=== PATIENT | female | born 1945 | race Caucasian/White ===

== ENCOUNTER 2020-01-23 08:28 | Outpatient (CLI) | payer MEDICARE, SELFPAY ==
--- NOTE | 2020-01-23 08:55 | CT_ITS ---
WS: [id number] CT NECK WITH CONTRAST HISTORY: SWELLING/MASS IN NECK TECHNIQUE: Contiguous 5 mm axial images are performed through the neck with intravenous contrast. Sag ittal and coronal reformats are also submitted. All CT scans at [facility] use at least o ne of these dose optimization techniques: automated exposure control; mA and/or kV adjustment per pat ient size (includes targeted exams where dose is matched to clinical indication); or iterative recons truction. CONTRAST: CONTRAST: Omnipaque 300; 95 mL IV. DLP: 2590.43 mGycm COMPARISON: None available. Nasopharynx, oropharynx, hypopharynx and larynx are unremarkable. No soft tissue masses or abnormal e nhancement. Torus tubarius and fossa of Rosenmuller and parapharyngeal fat are normal. No significant lymphadenopathy is identified. Subcentimeter thyroid nodule on the LEFT measures 5 mm. The submandibular gland and parotid glands ar e normal. No masses or enlargement. Mild degenerative changes throughout the cervical spine and upper thoracic spine. Visualized portions of the skull base demonstrate no abnormalities. Orbits and globes are within norm al limits. No soft tissue masses. Visualized paranasal sinuses and mastoid air cells are normal. Lung apices are clear. CT/CT neck w con* [id number] IMPRESSION: No neck mass or adenopathy.
[2020-01-23 09:24] LABS: Blood Urea Nitrogen 10 mg/dL (8-23)
[2020-01-23] MEDS: iohexol 300 mg/mL 100 mL Btl IV (09:32)
== END 2020-01-23 08:29 | disposition home or self-care (01) ==
LOC: RADWPI 08:32
PROVIDERS: Radiology Diagnostic Radiology; Family Provider Physician Assistant; PCP Physician Assistant; Visit Provider Specialist
DX: R22.1 Localized swelling, mass and lump, neck (principal)
CPT/HCPCS: 70491; 82565; 84520; Q9967

== ENCOUNTER 2020-02-24 11:03 | Outpatient (CLI) | payer MEDICARE, SELFPAY ==
--- NOTE | 2020-02-24 11:13 | XR_ITS ---
WS: [id number] DEXA (DUAL ENERGY X-RAY ABSORPTIOMETRY) Bone mineral density was performed using a [employer] machine. HISTORY: POSTMENOPAUSAL COMPARISON: 06/07/2013 Lumbar spine BMD (L1-L4): 1.212 g/cm2 T score: 0.3 Z score: 1.7 Total hip BMD: Left: 1.010 g/cm2. T score: 0.0 Z score: 1.4 Right: 1.031 g/cm2. T score: 0.2 Z score: 1.5 10 year probability of a major osteoporotic fracture is 8%. Compared to the prior study from 06/07/2013. Lumbar spine bone mineral density has decreased by 3.0%. Bilateral hips bone mineral density has decreased by 10.8%. XR/XR DEXA axial skeleton* [id number] IMPRESSION: NORMAL BONE MINERAL DENSITY based upon the WHO classification for females. 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
== END 2020-02-24 11:04 | disposition home or self-care (01) ==
LOC: RADWPI 11:05
PROVIDERS: Family Provider Physician Assistant; PCP Physician Assistant; Visit Provider Physician Assistant
DX: Z78.0 Asymptomatic menopausal state (principal)
CPT/HCPCS: 77080

== ENCOUNTER 2020-06-07 13:09 | Outpatient (CLI) | payer MEDICARE, SELFPAY ==
--- NOTE | 2020-06-07 13:26 | MM_ITS ---
WS: [id number] BILATERAL DIGITAL SCREENING MAMMOGRAM WITH CAD CLINICAL INFORMATION: SCREENING HISTORY: Screening mammogram. No current complaints. COMPARISON: April 22, 2019. TECHNIQUE: Bilateral CC and MLO views. FINDINGS: Fatty-replaced breasts bilaterally. No suspicious focal mass, asymmetry, calcifications, or net software architect ural distortion. No evidence of malignancy. Lucent centered calcification left breast. Stable intrama mmary lymph nodes. MM/[place] [id number] IMPRESSION: BI-RADS: 2-Benign FOLLOW UP: 1 Year Follow-up Recommend return to annual screening mammography.
== END 2020-06-07 13:10 | disposition home or self-care (01) ==
LOC: RADSHAW 13:14
PROVIDERS: PCP Physician Assistant; Visit Provider Physician Assistant
DX: Z12.31 Encounter for screening mammogram for malignant neoplasm of breast (principal)
CPT/HCPCS: 77067

== ENCOUNTER 2021-08-06 10:19 | Outpatient (CLI) | payer MEDICARE, SELFPAY ==
--- NOTE | 2021-08-06 10:39 | MM_ITS ---
WS: [id number] SCREENING DIGITAL MAMMOGRAM WITH CAD HISTORY: SCREENING COMPARISON: 06/07/2020, 04/22/2019 and 04/13/2018 Bilateral CC and MLO views submitted. Computer aided detection analyzed. Breast composition: There are scattered areas of fibroglandular density. Normal appearance of each br east. Benign calcifications. There is a palpable marker placed over the upper inner quadrant of the R IGHT breast. No underlying abnormality. MM/[place] [id number] IMPRESSION: BI-RADS: 0-Incomplete: Need additional imaging evaluation FOLLOW UP: Need Additional Imaging RIGHT breast: Spot compression views (CC and MLO). True ML. Ultrasound to follo w if abnormality persists. Patient describes a palpable abnormality for which d iagnostic imaging should be performed.
== END 2021-08-06 10:20 | disposition home or self-care (01) ==
LOC: RADSHAW 10:24
PROVIDERS: PCP Physician Assistant; Visit Provider Physician Assistant
DX: Z12.31 Encounter for screening mammogram for malignant neoplasm of breast (principal)
CPT/HCPCS: 77067

== ENCOUNTER 2021-08-27 10:10 | Outpatient (CLI) | payer MEDICARE, SELFPAY ==
--- NOTE | 2021-08-27 10:15 | US_ITS ---
WS: [id number] ADDITIONAL VIEWS RIGHT BREAST RIGHT breast ultrasound, limited HISTORY: Patient describes a palpable area upper inner RIGHT breast. COMPARISON: 08/06/2021, 06/07/2020 Compression views right CC and MLO projection. True ML also submitted. Mammographically no abnormalit y is noted in the region of the triangular marker in the upper inner quadrant of the RIGHT breast. No soft tissue thickening or mass. RIGHT breast ultrasound, limited. Ultrasound is directed to 1:00 in the location of the palpable abno rmality. There is no soft tissue mass identified. No shadowing or skin thickening. US/US breast RT limited* [id number] IMPRESSION: BI-RADS: 1-Negative FOLLOW-UP: 1 Year Follow-up No imaging abnormality associated with the palpable area in the RIGHT breast.
== END 2021-08-27 10:11 | disposition home or self-care (01) ==
LOC: RADSHAW 10:13
PROVIDERS: PCP Physician Assistant; Visit Provider Physician Assistant
DX: R92.8 Other abnormal and inconclusive findings on diagnostic imaging of breast (principal)
CPT/HCPCS: 76642; 77065

== ENCOUNTER 2022-03-21 14:01 | Outpatient (CLI) | payer MEDICARE, SELFPAY ==
--- NOTE | 2022-03-21 14:11 | XR_ITS ---
WS: [id number] DEXA (DUAL ENERGY X-RAY ABSORPTIOMETRY) Bone mineral density was performed using a [employer] machine. HISTORY: POST MENOPAUSAL COMPARISON: 02/06/2020 Lumbar spine BMD (L1-L4): 1.148 g/cm2 T score: -0.3 Z score: 1.2 Total hip BMD: Left: 0.962 g/cm2. T score: -0.4 Z score: 1.1 Right: 0.975 g/cm2. T score: -0.3 Z score: 1.2 10 year probability of a major osteoporotic fracture is 9.2%. Compared to the prior study from 02/24/2020. Lumbar spine bone mineral density has decreased by 5.3%. Bilateral hips bone mineral density has decreased by 5.2%. XR/XR DEXA axial skeleton* [id number] IMPRESSION: NORMAL BONE MINERAL DENSITY based upon the WHO classification for females. Sign ificant decrease in bone mineral density within the lumbar spine and hips since the prior study.
== END 2022-03-21 14:02 | disposition home or self-care (01) ==
PROVIDERS: PCP Physician Assistant; Visit Provider Physician Assistant
DX: Z78.0 Asymptomatic menopausal state (principal)
CPT/HCPCS: 77080

== ENCOUNTER 2022-09-04 09:22 | Outpatient (CLI) | payer MEDICARE, SELFPAY ==
--- NOTE | 2022-09-04 09:36 | MM_ITS ---
WS: [id number] BILATERAL SCREENING DIGITAL TOMOSYNTHESIS MAMMOGRAM WITH CAD HISTORY: SCREENING COMPARISON: 08/06/2021, 06/07/2020 Bilateral CC and MLO views with tomosynthesis and synthetic mammography submitted. Computer aided det ection analyzed. Breast composition: There are scattered areas of fibroglandular density. No suspicious masses, microc alcifications or architectural distortion. Benign calcifications in each breast. Breast arterial calc ifications. MM/[place] [id number] IMPRESSION: BI-RADS: 2-Benign FOLLOW UP: 1 Year Follow-up
== END 2022-09-04 09:23 | disposition home or self-care (01) ==
PROVIDERS: PCP Physician Assistant; Visit Provider Physician Assistant
DX: Z12.31 Encounter for screening mammogram for malignant neoplasm of breast (principal)
CPT/HCPCS: 77063; 77067

== ENCOUNTER → 2023-08-12 13:37 | Outpatient (BNVA) | payer MEDICARE, SELFPAY | PROVIDERS: PCP Physician Assistant; Visit Provider Specialist | DX: M19.041 Primary osteoarthritis, right hand; M19.042 Primary osteoarthritis, left hand | CPT/HCPCS: 73130; 99204 ==

== ENCOUNTER 2023-08-21 06:00 | Outpatient (RCR) | payer MEDICARE, SELFPAY | END 2023-08-26 23:59 | disposition home or self-care (01) | LOC: SOT 06:00 | PROVIDERS: PCP Physician Assistant; Visit Provider Specialist | DX: M19.042 Primary osteoarthritis, left hand (principal); M19.041 Primary osteoarthritis, right hand | CPT/HCPCS: 97110; 97166 ==

== ENCOUNTER 2023-08-27 06:00 | Outpatient (RCR) | payer MEDICARE, SELFPAY | END 2023-09-24 23:59 | disposition home or self-care (01) | LOC: SOT 06:00 | PROVIDERS: PCP Physician Assistant; Visit Provider Specialist | DX: M19.042 Primary osteoarthritis, left hand (principal); M19.041 Primary osteoarthritis, right hand | CPT/HCPCS: 97022; 97110; 97140 ==

== ENCOUNTER 2023-09-07 13:49 | Outpatient (CLI) | payer MEDICARE, SELFPAY ==
--- NOTE | 2023-09-07 15:27 | MM_ITS ---
WS: [id number] BILATERAL 3D TOMOSYNTHESIS DIGITAL SCREENING MAMMOGRAPHY WITH CAD CLINICAL INFORMATION: SCREENING HISTORY: Screening mammogram. No current complaints. COMPARISON: 2022 TECHNIQUE: Bilateral CC and MLO views. FINDINGS: Scattered fibroglandular densities bilaterally. No suspicious focal mass, asymmetry, calcifications, or architectural distortion. No evidence of malignancy. Vascular calcification. A few incidental punc kelly and lucent centered calcifications. IMPRESSION: MM/[place] [id number] BI-RADS: 2-Benign FOLLOW UP: 1 Year Follow-up Recommend return to annual screening mammography.
== END 2023-09-07 13:50 | disposition home or self-care (01) ==
LOC: RAD 13:50
PROVIDERS: PCP Physician Assistant; Visit Provider Physician Assistant
DX: Z12.31 Encounter for screening mammogram for malignant neoplasm of breast (principal); R92.323 Mammographic fibroglandular density, bilateral breasts; R92.1 Mammographic calcification found on diagnostic imaging of breast
CPT/HCPCS: 77063; 77067

== ENCOUNTER 2023-09-25 06:00 | Outpatient (RCR) | payer MEDICARE, SELFPAY | END 2023-10-25 23:59 | disposition home or self-care (01) | LOC: SOT 06:00 | PROVIDERS: PCP Physician Assistant; Visit Provider Specialist | DX: M19.042 Primary osteoarthritis, left hand (principal); M19.041 Primary osteoarthritis, right hand | CPT/HCPCS: 97022; 97110 ==

== ENCOUNTER 2024-08-19 08:43 | Emergency (ER) | payer MEDICARE, SELFPAY ==
[2024-08-19 08:58] VITALS: BP 109/80; PULSE 80; RESP 17; TEMP 36.5; O2SAT 97; BMI 28.7
--- NOTE | 2024-08-19 09:20 | ED_ITS ---
HPI - Nausea/Vomiting/Diarrhea 2 General: Chief complaint: Nausea/Vomiting/Diarrhea Stated complaint: stomach pain Time Seen by Provider: 08/19/24 08:44 History of Present Illness: 78-year-old female presents to the [facility] ency room with complaints of abdominal pain she localizes generally to the left lower quadrant she has had nausea and diarrhea she has not had any medic easy melena hematemesis or coffee-ground emesis. She told the nurse she was vomiting told me she had not been vomiting in the last 24 hours. She denies any dysuria urgency or frequency. She believes she may have had a colonoscopy but does not remember any details about it she cannot recall previously being diagnosed with nephrolithiasis or diverticulitis. She is subjectively had a fever but has not had a measured temperature. Associated nausea: Yes Associated symtoms: Reports nausea; Denies chest pain or dysuria Related Data Home Medications Medication Instructions Recorded Confirmed amitriptyline 10 mg tablet 10 mg PO DAILY 08/19/24 08/19/24 atorvastatin 80 mg tablet 80 mg PO DAILY 08/19/24 08/19/24 donepezil 10 mg tablet 10 mg PO DAILY 08/19/24 08/19/24 latanoprost 0.005 % eye drops 1 drp ophthalmic (eye) DAILY 08/19/24 08/19/24 levothyroxine 75 mcg tablet 75 mcg PO DAILY 08/19/24 08/19/24 losartan 50 mg-hydrochlorothiazide 1 tab PO DAILY 08/19/24 08/19/24 12.5 mg tablet metformin 500 mg tablet,extended 500 mg PO DAILY 08/19/24 08/19/24 release 24 hr zolpidem 10 mg tablet 10 mg PO QPM 08/19/24 08/19/24 Previous Rx's Medication Instructions Recorded cefdinir 300 mg capsule 300 mg PO BID #14 caps 08/19/24 Allergies Allergy/AdvReac Type Severity Reaction Status Date / Time No Known Allergies Allergy Verified 08/12/23 14:20 Review of Systems 2 Const: Denies: fever(s) or chills Card: Denies: chest pain Resp: Denies: dyspnea GI: Reports: abdominal pain, nausea and diarrhea; Denies: vomiting : Denies: dysuria, urinary frequency or urinary urgency Musc: Denies: neck pain or back pain Skin/Breast: Denies: rash PFSH ED 2 PFSH: Medical History Primary osteoarthritis of hands, bilateral Physical Exam 2 Const: COMMON NORMALS: no acute distress GENERAL APPEARANCE: cooperative and comfortable ORIENTATION/CONSCIOUSNESS: Yes awake, Yes oriented to person, Yes oriented to place and Yes oriented to time HENMT: COMMON NORMALS: normocephalic, atraumatic and hearing grossly normal bilaterally HEAD & SCALP: normocephalic and atraumatic Resp: COMMON NORMALS: normal respiratory effort, No retractions, No use of accessory muscles and clear to auscultation bilaterally AUSCULTATION: clear to auscultation bilaterally Cardio: COMMON NORMALS: regular rate, regular rhythm and No murmurs present (Cardio) RATE: regular rate RHYTHM: regular rhythm GI: COMMON NORMALS: No hepatosplenomegaly present AUSCULTATION: Yes normoactive bowel sounds PALPATION: Yes Tenderness to palpation present (GI), No Guarding due to palpation present (GI) and Yes No hepatosplenomegaly present Extremity: COMMON NORMALS: normal to inspection, capillary refill normal, no clubbing, cyanosis or edema, no calf tenderness and no pedal edema Neuro: SENSORIUM/ORIENTATION: Yes oriented to person, Yes oriented to place and Yes oriented to time Skin: COMMON NORMALS: no rashes or lesions noted GENERAL SKIN EXAM: no rashes or lesions noted Course 2 Vital Signs: Vital signs: Vital Signs Temperature 97.7 F 08/19/24 08:58 Pulse Rate 80 08/19/24 12:33 Respiratory Rate 17 08/19/24 08:58 Blood Pressure 110/70 08/19/24 12:33 Pulse Oximetry 97 08/19/24 12:33 Oxygen Delivery Me thod Room Air 08/19/24 08:58 MDM - Nausea/Vomiting/Diarrhea Medical Decision Making Labs show an acute cystitis. No other findings no leukocytosis we will give a dose of Rocephin here and started on cefdinir 300 twice daily for 7 days follow- up as needed Medical Records I reviewed the patient's medical records. Lab Data I reviewed the patient's lab results. 08/19/24 09:17 08/19/24 09:17 Radiology Impressions Abdomen/Pelvis CT 08/19/24 09:44 IMPRESSION: 1. Extensive distal colon diverticular disease without evidence for acute diverticulitis. 2. No ascites or adenopathy. 3. Normal appendix. 4. Atherosclerosis aorta and iliac arteries. 5. Bilateral renal cysts. No renal obstruction. Laboratory Results WBC 6.94 10^3/uL (3.29-11.43) 08/19/24 09:17 RBC 3.98 10^6/uL (3.85-5.65) 08/19/24 09:17 Hgb 11.60 g/dL (11.27-16.99) 08/19/24 09:17 Hct 35.3 % (36-47) L 08/19/24 09:17 MCV 88.7 fl (85-98) 08/19/24 09:17 MCH 29.1 pg (27-33) 08/19/24 09:17 MCHC 32.9 g/dL (30-55) 08/19/24 09:17 RDW 13.1 % (12.1-15.1) 08/19/24 09:17 Plt Count 177 10^3/cmm (157-399) 08/19/24 09:17 MPV 10.7 fL (7.4-10.4) H 08/19/24 09:17 Neut % (Auto) 75.6 % 08/19/24 09:17 Lymph % (Auto) 12.1 % 08/19/24 09:17 Austin % (Auto) 11.2 % 08/19/24 09:17 Eos % (Auto) 0.9 % 08/19/24 09:17 Baso % (Auto) 0.1 % 08/19/24 09:17 Neut # (Auto) 5.24 10^3/uL (1.8-7.7) 08/19/24 09:17 Lymph # (Auto) 0.8 10^3/uL (0.8-4.8) 08/19/24 09:17 Austin # (Auto) 0.8 10^3/uL (0.2-0.9) 08/19/24 09:17 Eos # (Auto) 0.1 10^3/uL (0.0-0.8) 08/19/24 09:17 Baso # (Auto) 0.0 10^3/uL (0.0-0.1) 08/19/24 09:17 Nucleated RBC % (auto) 0 % 08/19/24 09:17 Nucleated RBCs # 0.0 /100WBC 08/19/24 09:17 Sodium 139 mmol/L (136-145) 08/19/24 09:17 Potassium 3.5 mmol/L (3.5-5.1) 08/19/24 09:17 Chloride 97 mmol/L (98-107) L 08/19/24 09:17 Carbon Dioxide 28 mmol/L (22-29) 08/19/24 09:17 Anion Gap 17.5 (5-19) 08/19/24 09:17 BUN 14 mg/dL (8-23) 08/19/24 09:17 Creatinine 0.8 mg/dL (0.5-0.9) 08/19/24 09:17 GFR Calculation Not Reportable 08/19/24 09:17 Glucose 138 mg/dL (65-115) H 08/19/24 09:17 Calculated Osmolality 291 mOsm/kg (285-295) 08/19/24 09:17 Calcium 9.2 mg/dL (8.5-10.5) 08/19/24 09:17 Total Bilirubin 0.6 mg/dL (0.15-1.2) 08/19/24 09:17 AST 26 U/L (0-32) 08/19/24 09:17 ALT 16 U/L (0-33) 08/19/24 09:17 Alkaline Phosphatase 102 U/L (35-105) 08/19/24 09:17 Total Protein 6.8 g/dL (6.6-8.7) 08/19/24 09:17 Albumin 4.1 g/dL (3.5-5.2) 08/19/24 09:17 Globulin 2.7 g/dL (1.3-4.6) 08/19/24 09:17 Lipase 23 U/L (13-60) 08/19/24 09:17 Urine Color Yellow (Yellow) 08/19/24 10:44 Urine Appearance Clear (CLEAR) 08/19/24 10:44 Urine pH >=9.0 (5-7) A 08/19/24 10:44 Ur Specific [place]lyn 1.023 (1.005-1.030) 08/19/24 10:44 Urine Protein 1+ (Negative) A 08/19/24 10:44 Urine Glucose (UA) Negative (Normal) 08/19/24 10:44 Urine Ketones 2+ (Negative) H 08/19/24 10:44 Urine Blood Negative (Negative) 08/19/24 10:44 Urine Nitrate Negative (Negative) 08/19/24 10:44 Urine Bilirubin Negative (Negative) 08/19/24 10:44 Urine Urobilinogen 1.0 mg/dL (Negative) 08/19/24 10:44 Ur Leukocyte Esterase 1+ (Negative) A 08/19/24 10:44 Urine RBC 3-5 /hpf (0-2) 08/19/24 10:44 Urine WBC >100 /hpf (0-5) H 08/19/24 10:44 Ur Squamous Epith Cells 0-5 /hpf (0-5) 08/19/24 10:44 Amorphous Sediment Not Reportable 08/19/24 10:44 Urine Bacteria 2+ /hpf (NONE) H 08/19/24 10:44 Hyaline Casts 2.05 /lpf 08/19/24 10:44 All radiology interpretation(s) finalized by discharge Discharge Plan Discharge Patient Disposition: Home Clinical Impression: Cystitis Condition: Stable Prescriptions: New cefdinir 300 mg capsule 300 mg PO BID Qty: 14 0RF No Action latanoprost 0.005 % drops 1 drp ophthalmic (eye) DAILY atorvastatin 80 mg tablet 80 mg PO DAILY donepezil 10 mg tablet 10 mg PO DAILY levothyroxine 75 mcg tablet 75 mcg PO DAILY amitriptyline 10 mg tablet 10 mg PO DAILY zolpidem 10 mg tablet 10 mg PO QPM losartan-hydrochlorothiazide 50-12.5 mg tablet 1 tab PO DAILY metformin 500 mg tablet extended release 24 hr 500 mg PO DAILY Discharge Orders: Discharge ED (Routine); Ordered 08/19/24 Ordered By: Carlos Martini Referrals: Holli Byrnes PA [Primary Care Provider] - Discharge Diet: Usual diet Discharge Activity: Increase activity as tolerated Patient Instructions: Opioid Safety, Pain Management Activity Restrictions/Additional Instructions: Thank you for choosing [facility] for your healthcare needs today. It is very important that you follow up as instructed or that you return to the Emergency Department should you have concerns or if your condition changes or worsens in any way. You were seen with abdominal discomfort CT did not show any significant pathology your white count is normal urine did show signs of a bladder infection. You were given initial dose of antibiotics here. Begin oral antibiotics tomorrow. 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
[2024-08-19 09:22] LABS: Basophils % 0.1 %; Eosinophils # 0.1 10^3/uL (0.0-0.8); Eosinophils % 0.9 %; Hematocrit 35.3 % (36-47); Lymphocytes # 0.8 10^3/uL (0.8-4.8); Lymphocytes % 12.1 %; Mean Corpuscular HGB Conc 32.9 g/dL (30-55); Mean Corpuscular Hemoglobin 29.1 pg (27-33); Mean Corpuscular Volume 88.7 fl (85-98); Mean Platelet Volume 10.7 fL (7.4-10.4); Monocytes # 0.8 10^3/uL (0.2-0.9); Monocytes % 11.2 %; Neutrophils # 5.24 10^3/uL (1.8-7.7); Neutrophils % 75.6 %; Nucleated Red Blood Cells % 0 %; Platelet Count 177 10^3/cmm (157-399); Red Blood Count 3.98 10^6/uL (3.85-5.65); Red Cell Distribution Width 13.1 % (12.1-15.1); White Blood Count 6.94 10^3/uL (3.29-11.43)
[2024-08-19 09:39] LABS: Alanine Aminotransferase 16 U/L (0-33); Albumin Level 4.1 g/dL (3.5-5.2); Alkaline Phosphatase 102 U/L (35-105); Anion Gap 17.5 (5-19); Aspartate Amino Transferase 26 U/L (0-32); Blood Urea Nitrogen 14 mg/dL (8-23); Calcium 9.2 mg/dL (8.5-10.5); Carbon Dioxide 28 mmol/L (22-29); Chloride 97 mmol/L (98-107); Creatinine Clr Calc Pharmacy 55.2931; Globulin 2.7 g/dL (1.3-4.6); Glucose 138 mg/dL (65-115); Lipase 23 U/L (13-60); Osmolality Calculated 291 mOsm/kg (285-295); Potassium 3.5 mmol/L (3.5-5.1); Sodium 139 mmol/L (136-145); Total Bilirubin 0.6 mg/dL (0.15-1.2); Total Protein 6.8 g/dL (6.6-8.7)
--- NOTE | 2024-08-19 09:44 | CT_ITS ---
WS: [id number] CT ABDOMEN AND PELVIS NONCONTRAST HISTORY: Abdominal pain TECHNIQUE: Imaging performed through the abdomen and pelvis. Coronal and sagittal reformats are submi tted. All CT scans at [facility] use at least one of these dose optimization techniques: auto mated exposure control; mA and/or kV adjustment per patient size (includes targeted exams where dose is matched to clinical indication); or iterative reconstruction. DLP: 568.82 mGy.cm COMPARISON: None available. Lower thorax: Lung bases are clear. Visualized heart is normal. No hiatal hernia. Liver: Normal size liver. No mass or bile duct dilatation. Gallbladder: Prior cholecystectomy . Pancreas: Pancreatic atrophy. Spleen: Normal. Adrenal glands: Normal. No mass. Right kidney: No hydronephrosis. Simple cyst lower pole 4.2 cm. No ureteral calcification. Left kidney: Normal size kidney. Simple cyst 5.2 cm in the mid kidney. No obstruction. Aorta: Moderate to severe atherosclerosis abdominal aorta. No aneurysm. Atherosclerosis continues int o the common iliac arteries. No free fluid, intraperitoneal air or significant lymphadenopathy. GI tract: Normally distended stomach. No small bowel obstruction. No enteritis. Normal appendix. Exte nsive diverticular disease in the descending and sigmoid colon. No acute diverticulitis. Abdominal wall: Negative. No hernia. Pelvis: Atrophic uterus. Nondistended urinary bladder. No free fluid or adenopathy in the pelvis. Osseous structures: Increase in the lumbar lordosis. CT/CT abdomen pelvis wo con [id number] IMPRESSION: 1. Extensive distal colon diverticular disease without evidence for acute dive rticulitis. 2. No ascites or adenopathy. 3. Normal appendix. 4. Atherosclerosis aorta and iliac arteries. 5. Bilateral renal cysts. No renal obstruction.
[2024-08-19 11:00] LABS: Bilirubin Urine Negative (Negative); Blood Urine Negative (Negative); Glucose Urine UA Negative (Normal); Ketones Urine 2+ (Negative); Leukocyte Esterase Urine 1+ (Negative); Nitrate Urine Negative (Negative); Protein Urine 1+ (Negative); Specific Gravity, Urine 1.023 (1.005-1.030); Urine Appearance Clear (CLEAR); Urine Color Yellow (Yellow); pH Urine >=9.0 (5-7)
[2024-08-19 11:02] LABS: Add Urine Microscopic? YES; Bacteria Urine 2+ /hpf; Hyaline Casts Urine 2.05 /lpf; Squamous Epithelial Cell Urine 0-5 /hpf (0-5); WBC Urine >100 /hpf (0-5)
[2024-08-19 11:04] LABS: Add Urine Culture? Yes
[2024-08-19 12:33] VITALS: BP 110/70; PULSE 80; O2SAT 97
[2024-08-19] MEDS: cefTRIAXone 1,000 mg SDV 1000 MG IM (12:33)
== END 2024-08-19 12:34 | disposition home or self-care (01) ==
PROVIDERS: Physician Assistant; Emergency Provider Family Medicine; PCP Physician Assistant
DX: N30.90 Cystitis, unspecified without hematuria (principal); Z79.84 Long term (current) use of oral hypoglycemic drugs
CPT/HCPCS: 36415; 74176; 80053; 81001; 83690; 85025; 87077; 87086; 87186; 96372; 99284; J0696

== ENCOUNTER 2024-09-09 09:00 | Outpatient (CLI) | payer MEDICARE, SELFPAY ==
--- NOTE | 2024-09-09 09:23 | MR_ITS ---
WS: [id number] MRI BRAIN WITHOUT CONTRAST HISTORY: Headaches, light sensitivity. Alzheimer's COMPARISON: None available. TECHNIQUE: Diffusion imaging, multiplanar T1, T2 and FLAIR imaging obtained. No evidence for acute infarct or hemorrhage. Naranjo-white matter differentiation is normal. Very mild bilateral hippocampal atrophy. Mild cerebral and cerebellar atrophy without a prior infarct. Ventricles and extra-axial spaces are normal. No inferior displacement of cerebellar tonsils. The sella turcica and pituitary gland are unremarkable. Dural venous sinuses and [place] demonstrate no abnormality on this unenhanced studies. Paranasal sinuses: Small mucous retention cyst in the LEFT maxillary sinus. No air-fluid levels. Mastoid air cells: Normal. Calvarium and scalp: Intact. MR/MR head wo con* [id number] IMPRESSION: 1. No acute infarct or hemorrhage. 2. Mild cerebral and cerebellar atrophy. No prior infarct. 3. Mild bilateral hippocampal atrophy.
== END 2024-09-09 09:01 | disposition home or self-care (01) ==
PROVIDERS: PCP Physician Assistant; Visit Provider Physician Assistant
DX: G31.84 Mild cognitive impairment of uncertain or unknown etiology (principal); G31.89 Other specified degenerative diseases of nervous system; R93.89 Abnormal findings on diagnostic imaging of other specified body structures
CPT/HCPCS: 70551

== ENCOUNTER 2024-10-06 10:18 | Outpatient (CLI) | payer MEDICARE, SELFPAY ==
[2024-10-06 10:40] VITALS: BMI 26.5
--- NOTE | 2024-10-06 10:40 | ECG_ITS ---
iRewardChart Test Date: 2024-10-06 Pat Name: Florence Scott Department: Room: Gender: Female Principal Strategist: : 1945 Requested By: Holli Pimentel Order Number: [id number] Dixon MD: Sabas Coleman M.D. Interpretive Statements LEXISCAN: Procedure: At the baseline, the blood pressure was 119/82 mmHg with a heart rate of 77 bpm. The electrocardiogram showed normal sinus rhythm, normal axis with normal ST and T's. The Lexiscan was infused over a period of 20 seconds. A total of 0.4 mg of Lexiscan was infused. The stress phase was continued for a total of 5 minutes. Heart rate was at the end of stress phase was 98 bpm and a blood pressure of 129/48 mmHg. The EKG at the peak infusion revealed normal sinus rhythm with no significant ST-T wave changes. Sestamibi was injected 20 seconds after the Lexiscan infusion. Blood pressure at the end of recovery phase was 129/59mmHg with a heart rate of 96 bpm. Conclusion: 1. Normal EKG response to Lexiscan infusion 2. No Lexiscan induced chest pain or cardiac arrhythmia. 3. Normal blood pressure and heart rate response. 4. Sestamibi/sestamibi perfusion scan pending; see separate report. Electronically Signed On 10-16-2024 01:34:28 CDT by Sabas Coleman M.D. [email or web address]
--- NOTE | 2024-10-06 10:41 | NMCV_ITS ---
NM mikael perf SPECT r/s* [id number] Florence Scott Age: 78 Gender: F : 1945 Exam Date: 10/06/2024 11:22 Ordering Phys: Holli Byrnes Technologist: KARINA Frankel Exam Location: [facility] Indications: cp STRESS TEST Please see separate stress test report in [facility] for full findings IMAGE PROTOCOL Rest/Stress 1 Lexiscan Day Radiopharmaceutical Dose (mCi) Administration Site Administered by Rest: Tc-99m 10.7 IV Surekha Santos, SIEVE MAKER Sestamibi Stress:Tc-99m 32.8 IV Surekha Hernandezgle, SIEVE MAKER Sestamibi Rest: 06-Oct-2024 60 Discovery 630 Stress: 06-Oct-2024 30 Discovery 630 0.4mg Lexiscan. Supine position only as patient was unable to lay prone. SPECT RESULTS Technical Quality: Good Raw Data Analysis: Normal Image Corrections: No attenuation or motion correction applied Summed Stress Score: 4 Summed Rest Score: 4 Summed Difference Score: 0 PERFUSION FINDINGS Small sized area of fixed perfusion defect noted in the inferolateral wall. 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 FUNCTIONAL RESULTS (calculated via Gated SPECT) Stress Image LV EF (%): 91 Stress EDV (mL):35 TID: 0.79 Stress ESV (mL):3 FUNCTIONAL FINDINGS: There is normal left ventricular systolic function. IMPRESSIONS 1. 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 No evidence of ischemia 2. LV systolic function is normal Sabas Coleman MD (Electronically Signed) Final Date: 06 October 2024 13:07 S
[2024-10-06] MEDS: regadenoson 0.4 Mg/5 ml Syringe IVP (11:55)
[2024-10-06 12:06] VITALS: BP 134/63; PULSE 98
== END 2024-10-06 10:19 | disposition home or self-care (01) ==
LOC: CDL 10:19
PROVIDERS: PCP Physician Assistant; Visit Provider Physician Assistant
DX: R07.9 Chest pain, unspecified (principal); R93.1 Abnormal findings on diagnostic imaging of heart and coronary circulation
CPT/HCPCS: 36415; 78452; 93017; 96374; A9500; J2785

== ENCOUNTER → 2024-12-14 13:02 | Outpatient (BNVA) | payer MEDICARE, SELFPAY | PROVIDERS: PCP Physician Assistant; Visit Provider Internal Medicine | DX: I10 Essential (primary) hypertension (principal); E11.9 Type 2 diabetes mellitus without complications; Z79.84 Long term (current) use of oral hypoglycemic drugs; E78.5 Hyperlipidemia, unspecified; R06.02 Shortness of breath | CPT/HCPCS: 99204 ==

== ENCOUNTER 2025-01-26 12:11 | Outpatient (CLI) | payer MEDICARE, SELFPAY ==
--- NOTE | 2025-01-26 12:30 | USCV_ITS ---
Florence Scott Age: 79 Gender: F : 1945 Exam Date: 01/26/2025 12:34 Ordering Phys: Sabas Coleman M.D ([email or web address]) Technologist: VICKI Exam Location: [facility] Indication: chest pain, SOB BP: 120 / 60 HR: 73 Rhythm: Sinus Technical Quality: Adequate MEASUREMENTS (Male / Female) Normal Values 2D ECHO LV Diastolic Diameter PLAX 3.7 cm 4.2 - 5.9 / 3.9 - 5.3 cm IVS Diastolic Thickness 1.0 cm 0.6 - 1.0 / 0.6 - 0.9 cm IVS Systolic Thickness 1.4 cm LVPW Diastolic Thickness 1.0 cm 0.6 - 1.0 / 0.6 - 0.9 cm LVPW Systolic Thickness 1.5 cm LVOT Diameter 1.9 cm LV Ejection Fraction 2D Teich 59.0 % LV Ejection Fraction MOD 4C 71.3 % LV Ejection Fraction MOD 2C 62.8 % LV Ejection Fraction 2C AL 64.1 % LA Diameter 3.8 cm RA Systolic Volume 4C AL 30.1 ml RA Systolic Volume 4C MOD 30.2 ml LA Sys Volume AL 36.5 cm cubed LA Sys Volume Index AL 19.9 cm cubed/m squared Aorta at Sinotubular Diameter 2.5 cm IVC Diameter 1.6 cm M-MODE LA Ao Ratio MM 1.8 AV Cusp Separation MM 1.2 cm DOPPLER AV Peak Velocity 150.0 cm/s LVOT Peak Velocity 76.0 cm/s AV Area Cont Eq vti 1.2 cm squared AV Area Cont Eq pk 1.4 cm squared MV Peak Velocity 108.0 cm/s MV Area PHT 3.8 cm squared Mitral E to A Ratio 0.6 TR Peak Velocity 218.5 cm/s TR Peak Gradient 19.1 mmHg TR Mean Velocity 198.0 cm/s TR Mean Gradient 17.2 mmHg TR Velocity Time Integral 77.7 cm TV Peak E Velocity 65.0 cm/s PV Peak Velocity 86.0 cm/s FINDINGS Left Ventricle Normal left ventricular size, systolic function and wall thickness, with no regional wall motion abnormalities. Left ventricular ejection fraction is estimated at 60 %. Grade I/IV diastolic dysfunction (abnormal relaxation filling pattern), normal to mildly elevated filling pressures. Right Ventricle The right ventricle is normal in size and function. Right Atrium The right atrium is normal in size. Left Atrium Mildly increased left atrial size. Mitral Valve Thickened mitral valve. No mitral valve stenosis. Mild mitral valve regurgitation. Aortic Valve Structurally normal aortic valve without significant sclerosis or stenosis. There is no aortic regurgitation. Tricuspid Valve Structurally normal tricuspid valve without significant stenosis or regurgitation. Pulmonary artery systolic pressure is normal. Pulmonic Valve Structurally normal pulmonic valve without significant stenosis. There is no pulmonic regurgitation. Pericardium Normal pericardium without effusion. Aorta Normal ascending aorta dimension. IVC The inferior vena cava appears normal. CONCLUSIONS Normal left ventricular size, systolic function and wall thickness, with no regional wall motion abnormalities. Left ventricular ejection fraction is estimated at 60 %. Grade I/IV diastolic dysfunction (abnormal relaxation filling pattern), normal to mildly elevated filling pressures. Mildly increased left atrial size. Thickened mitral valve. No mitral valve stenosis. Mild mitral valve regurgitation. There is no pericardial effusion. Right atrial pressure is around 5 mm of mercury. Caren Mcmanus MD (Electronically Signed) Final Date: 10 February 2025 15:16 S
== END 2025-01-26 12:12 | disposition home or self-care (01) ==
LOC: RAD 12:12
PROVIDERS: PCP Physician Assistant; Visit Provider Internal Medicine
DX: R07.9 Chest pain, unspecified (principal); R06.02 Shortness of breath; R93.1 Abnormal findings on diagnostic imaging of heart and coronary circulation; I51.7 Cardiomegaly; I34.0 Nonrheumatic mitral (valve) insufficiency
CPT/HCPCS: 93306

== ENCOUNTER → 2025-03-15 13:16 | Outpatient (BNVA) | payer MEDICARE, SELFPAY | PROVIDERS: PCP Physician Assistant; Visit Provider Internal Medicine | DX: E11.9 Type 2 diabetes mellitus without complications (principal); I10 Essential (primary) hypertension; E78.5 Hyperlipidemia, unspecified; Z79.84 Long term (current) use of oral hypoglycemic drugs | CPT/HCPCS: 99213 ==

== ENCOUNTER 2025-03-30 13:05 | Outpatient (CLI) | payer MEDICARE, SELFPAY ==
--- NOTE | 2025-03-30 13:07 | MM_ITS ---
WS: [id number] BILATERAL SCREENING DIGITAL TOMOSYNTHESIS MAMMOGRAM WITH CAD HISTORY: SCREENING COMPARISON: 09/07/2023, 09/04/2022 Bilateral CC and MLO views with tomosynthesis and synthetic mammography submitted. Computer aided detection analyzed. Breast composition: There are scattered areas of fibroglandular density. No suspicious masses, microcalcifications or architectural distortion. Small asymmetries and benign calcifications in each breast. No distortion. MM/MM scr tomosynthesis [id number] IMPRESSION: BI-RADS: 2 - Benign. FOLLOW UP: 1 Year Follow-up
== END 2025-03-30 13:06 | disposition home or self-care (01) ==
LOC: RAD 13:05
PROVIDERS: PCP Physician Assistant; Visit Provider Physician Assistant
DX: Z12.31 Encounter for screening mammogram for malignant neoplasm of breast (principal); R92.323 Mammographic fibroglandular density, bilateral breasts; R92.1 Mammographic calcification found on diagnostic imaging of breast
CPT/HCPCS: 77063; 77067